=== PATIENT | female | born 1985 | race Caucasian/White ===

== ENCOUNTER 2021-01-10 17:06 | Emergency (ER) | payer BC, SELFPAY ==
[2021-01-10 17:11] VITALS: BP 144/109; PULSE 127; RESP 20; TEMP 36.9; O2SAT 100
[2021-01-10] MEDS: EPINEPHrine HCL INJ 1 MG/ML AMPUL 0.3 MG IM (17:17)
[2021-01-10] MEDS: methylPREDNISolone SOD SUCC 125 MG VIAL IV PUSH (17:19)
[2021-01-10] MEDS: FAMOTIDINE 20 MG/2 ML VIAL IV PUSH (17:20)
[2021-01-10 17:22] VITALS: BP 132/116; PULSE 108; RESP 14; O2SAT 100
--- NOTE | 2021-01-10 17:54 | ED.ALLEREA ---
HPI - Allergic Reaction General Chief complaint: Allergic Reaction <Erik León MD - Last Filed: 01/10/21 18:46> Stated complaint: allergic reaction <Erik León MD - Last Filed: 01/10/21 18:46> Time Seen by Provider: 01/10/21 17:11 <Erik León MD - Last Filed: 01/10/21 18:46> History of Present Illness HPI narrative: Patient is a 35-year-old female who presents ER with a food allergy. She reports she bit into a macaroni and immediately felt discomfort in swelling her throat. She has some minor difficulty swallowing but was able to take 50 mg of Benadryl. She does not have an EpiPen. She is tolerating her oral secretions. There is no stridor. She has no shortness of breath/nausea/vomiting. No skin rash. Has not had issues with eating macaroni and's before. 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 <Erik León MD - Last Filed: 01/10/21 18:46> Related Data Home medications: Home Medications Medication Instructions Recorded Confirmed albuterol sulfate INHALATION 01/10/21 bupropion HCl mg PO 01/10/21 <Erik León MD - Last Filed: 01/10/21 18:46> Allergies/adverse reactions: Allergies Allergy/AdvReac Type Severity Reaction Status Date / Time cashew nut Allergy Unknown Itching Verified 01/10/21 17:10 egg Allergy Unknown Itching Verified 01/10/21 17:10 Crab Allergy Unknown Itching Uncoded 01/10/21 17:10 [place] Allergy Unknown Itching Uncoded 01/10/21 17:10 Tuna Allergy Unknown Itching Uncoded 01/10/21 17:10 <Erik León MD - Last Filed: 01/10/21 18:46> Review of Systems Review of Systems: All systems reviewed & are unremarkable except as noted in HPI and below <Erik León MD - Last Filed: 01/10/21 18:46> Constitutional: Constitutional: Denies chills, Denies fever(s) and Denies weakness <Erik León MD - Last Filed: 01/10/21 18:46> ENT: Denies nasal congestion <Erik León MD - Last Filed: 01/10/21 18:46> Cardiovascular: Cardiovascular: Denies chest pain, Denies rapid heart rate and Denies radiating jaw, neck or arm pain <Erik León MD - Last Filed: 01/10/21 18:46> Respiratory: Respiratory: Denies cough, Denies dyspnea and Denies wheezing <Erik León MD - Last Filed: 01/10/21 18:46> Gastrointestinal: Gastrointestinal: Denies abdominal pain, Denies diarrhea, Denies nausea and Denies vomiting <Erik León MD - Last Filed: 01/10/21 18:46> PMFSH Past Medical History Medical History: Medical History (Updated 01/10/21 @ 18:45 by Erik León MD) Asthma <Erik León MD - Last Filed: 01/10/21 18:46> Surgical History Surgical History: Surgical History (Updated 01/10/21 @ 17:56 by Erik León MD) History of <Erik León MD - Last Filed: 01/10/21 18:46> Social History Social History: Social History Smoking status: Never smoker Alcohol intake: never Gender identity (if verbalized by the patient): Female <Erik León MD - Last Filed: 01/10/21 18:46> Exam Narrative: Exam Narrative: GENERAL: Well-appearing, well-nourished, and in no acute distress. HEAD: Normocephalic, atraumatic. ENT: Mucous membranes moist. Erythema to the back of the throat but uvula is midline, no angioedema of the uvula or tongue or lips. Tolerating oral secretions. NECK: Supple. CHEST: Clear to auscultation. No respiratory distress. HEART: Tachycardic and regular. Normal peripheral pulses. ABDOMEN: Soft, nontender, nondistended. EXTREMITIES: Normal range of motion. No edema. SKIN: Warm, dry, no rash. NEURO: Alert and oriented x3. <Erik León MD - Last Filed: 01/10/21 18:46> Course Course Emergency Course: Care turned over to myself at shift change seen by myself agrees initial H&P currently resting in bed no shortness of breath no rash no itching Patient re
[2021-01-10 20:06] VITALS: BP 131/85; PULSE 99; RESP 20; O2SAT 100
== END 2021-01-10 22:24 | disposition home or self-care (01) ==
PROVIDERS: Emergency Provider Emergency Medicine; PCP Internal Medicine
DX: T78.1XXA Other adverse food reactions, not elsewhere classified, initial encounter (principal); R09.89 Other specified symptoms and signs involving the circulatory and respiratory systems; R13.10 Dysphagia, unspecified; Z91.018 Allergy to other foods
CPT/HCPCS: 96372; 96374; 96375; 99284; J0171; J2930

== ENCOUNTER → 2021-05-20 08:28 | Outpatient (CLI) | payer BC, SELFPAY ==
--- NOTE | ~2021-05-20 | MMUS_ITS ---
EXAMINATION: [facility] BI w doug, US breast BI complete HISTORY: Left breast pain TECHNIQUE: ML, MLO and craniocaudal 3-D tomosynthesis images of both breasts were performed and synth [facility] 2-D images were generated. CAD analysis was submitted and interpreted. High resolution complete bilateral breast ultrasound was performed. COMPARISON: 07/07/2018 diagnostic left mammogram and limited left breast ultrasound 03/01/2017 bilateral diagnostic digital mammogram and bilateral complete breast ultrasound FINDINGS: MAMMOGRAPHIC FINDINGS: No suspicious mass or architectural distortion, malignant calcification, skin thickening or retractio n or significant new or developing density is detected. ULTRASOUND: There is a 3 mm cyst at the subareolar area of the right breast. No suspicious mass or shadowing of either breast is detected. IMPRESSION: 1. No mammographic evidence of malignancy 2. Routine mammographic screening is recommended BI-RADS Category 2: Benign finding(s). Reviewed, dictated and finalized at location A. IMPRESSION: 1. No mammographic evidence of malignancy 2. Routine mammographic screening is recommended BI-RADS Category 2: Benign finding(s).
== END ==
PROVIDERS: Visit Provider Student in an Organized Health Care Education/Training Program
DX: N64.4 Mastodynia (principal)
CPT/HCPCS: 76641; 77062; 77066; G0279

== ENCOUNTER 2022-02-18 07:51 | Emergency (ER) | payer BC, SELFPAY ==
--- NOTE | ~2022-02-18 | CT_ITS ---
EXAMINATION: CT abdomen pelvis w con DATE: 02/18/2022 08:58 INDICATION: Left lower quadrant abdominal pain. TECHNIQUE: Computed tomography (CT) of the abdomen and pelvis was performed with 100 mL Omnipaque 350 intravenous contrast. Automated exposure control and iterative reconstruction technique were employe d. The dose-length product was 805.91 mGy-cm. COMPARISON: None. FINDINGS: The visualized portions of the lung bases demonstrate minimal atelectasis on the right. No pleural effusion. The heart size is normal. No pericardial effusion. There is a small sliding hiatal hernia. The liver and spleen are normal. The gallbladder is distended, likely secondary to fasting. T he pancreas and adrenal glands are normal. There is a 3 mm cyst in right kidney. Left kidney is arcenio l. There is fat stranding around a sigmoid diverticulum with local bowel wall thickening, consistent with diverticulitis. There are no dilated loops of bowel. The appendix is normal. There is physiologi c fluid in the pelvis. There are no pathologically enlarged lymph nodes. The left ovarian vein is enl arged, consistent with pelvic venous insufficiency. There is mild lumbar spondylosis. IMPRESSION: 1. Acute sigmoid diverticulitis. No perforation or abscess. 2. Small sliding hiatal hernia. Reviewed, dictated and finalized at location A.
[2022-02-18 08:04] VITALS: BP 134/80; PULSE 92; RESP 16; TEMP 36.7; O2SAT 99
--- NOTE | 2022-02-18 08:16 | ED.ABDPAIN ---
HPI - Abdominal Pain General Chief Complaint: Abdominal Pain Stated Complaint: abd pain Time Seen by Provider: 02/18/22 07:55 Source: patient Mode of arrival: ambulatory Limitations: no limitations History of Present Illness HPI narrative: Patient is a 36-year-old female complaining of left lower quadrant pain, 9 out of 10, cramping, nonradiating started this morning. Patient states is currently on her menstrual cycle. Patient denies any chest pain, shortness of breath, nausea, vomiting, diarrhea, urinary symptoms, fever or chills. Related Data Home Medications Medication Instructions Recorded Confirmed albuterol sulfate INHALATION 01/10/21 bupropion HCl mg PO 01/10/21 Allergies Allergy/AdvReac Type Severity Reaction Status Date / Time cashew nut Allergy Unknown Itching Verified 01/10/21 17:10 egg Allergy Unknown Itching Verified 01/10/21 17:10 Crab Allergy Unknown Itching Uncoded 01/10/21 17:10 [place] Allergy Unknown Itching Uncoded 01/10/21 17:10 Tuna Allergy Unknown Itching Uncoded 01/10/21 17:10 Review of Systems Review of Systems: All systems reviewed & are unremarkable except as noted in HPI and below Constitutional: Constitutional: Denies body ache(s), Denies chills, Denies excessive sweating, Denies fatigue, Denies fever(s), Denies headache(s), Denies lethargy, Denies malaise, Denies weakness and Denies weight loss Eyes: Eyes: Denies blurry vision, Denies change in vision and Denies loss of vision ENT: Denies dizziness, Denies ear discharge, Denies headache(s), Denies lip swelling, Denies epistaxis, Denies nasal congestion, Denies neck pain, Denies throat swelling and Denies tongue swelling Cardiovascular: Cardiovascular: Denies chest pain, Denies chest pain at rest, Denies chest pain with activity, Denies diaphoresis, Denies rapid heart rate, Denies edema, Denies irregular heart rhythm, Denies lightheadedness, Denies palpitations, Denies dyspnea and Denies dyspnea on exertion Respiratory: Respiratory: Denies chest congestion, Denies cough, Denies hemoptysis, Denies dyspnea and Denies dyspnea on exertion Gastrointestinal: Gastrointestinal: Denies melena, Denies hematochezia, Denies diarrhea, Denies nausea, Denies vomiting and Denies hematemesis Musculoskeletal: Musculoskeletal: Denies abnormal gait, Denies deformity, Denies joint swelling, Denies limited range of motion, Denies neck pain and Denies numbness Neurologic: Denies Abnormal speech present, Denies abnormal gait, Denies confusion, Denies dizziness, Denies headache(s), Denies focal weakness, Denies loss of vision, Denies numbness, Denies Other visual disturbances, Denies Sensory deficit (Neuro) and Denies weakness Psychiatric: Psychiatric: Denies confusion, Denies depression, Denies auditory hallucinations, Denies homicidal ideation and Denies suicidal ideation Endocrine: Endocrine: Denies cold intolerance, Denies excessive sweating, Denies fatigue, Denies heat intolerance and Denies palpitations Hematologic/Lymphatic: Hematologic/Lymphatic: Denies easy bleeding and Denies easy bruising Allergic/Immunologic: Allergic/Immunologic: Denies lip swelling, Denies throat swelling and Denies tongue swelling PMFSH Past Medical History Medical History Asthma Surgical History Surgical History History of Social History Social History Smoking status: Never smoker Alcohol intake: never Gender identity (if verbalized by the patient): Female Exam Const: General: cooperative, healthy appearing, comfortable, no acute distress, well developed, alert and awake; No confusion Orientation/consciousness: oriented to person, oriented to place, oriented to time, patient oriented x3 and No confusion Limitations: no limitations HENMT: Head: normal to inspection, normocephalic and atrau
[2022-02-18 08:27] LABS: Basophils Absolute Auto 0.1 K/mm3 (0.0-0.1); Basophils Percent Auto 0.8 % (0.2-1.2); Eosinophils Absolute Auto 0.6 K/mm3 (0-0.3); Eosinophils Percent Auto 4.5 % (0-4.4); Hematocrit 41.9 % (37.0-47.0); Immature Granulocyte Absolute 0.05 K/mm3 (0.00-0.031); Immature Granulocyte Percent A 0.4 % (0-0.5); Lymphocytes Absolute Auto 2.46 K/mm3 (0.9-3.2); Lymphocytes Percent Auto 18.3 % (18.3-44.2); Mean Corpuscular HGB Conc 33.4 g/dl (32-36); Mean Corpuscular Volume 86.7 fl (80-100); Mean Platelet Volume 10.9 fl (7.4-10.4); Monocytes Absolute Auto 0.7 K/mm3 (0.1-0.6); Monocytes Percent Auto 5.4 % (2.6-8.5); Neutrophils Absolute Auto 9.5 K/mm3 (1.3-6.7); Neutrophils Percent Auto 70.6 % (45.5-73.1); Platelet Count Result 275 k/mm3 (150-375); Red Blood Count 4.83 M/mm3 (4.2-5.4); Red Cell Distribution Width 12.8 % (11.5-14.5); White Blood Count 13.4 K/mm3 (4.5-10.0)
[2022-02-18 08:28] LABS: Add Urine Microscopic? YES; Appearance Urine Clear (Clear); Bilirubin Urine Negative (Negative); Blood Urine 3+ (Negative); Color Urine Yellow (Yellow); Glucose Urine UA Negative (Negative); Ketones Urine Negative (Negative); Leukocyte Esterase Ur Negative LEU/UL (Negative); Mucus Urine Rare /lpf; Nitrate Urine Negative (Negative); Protein Urine Negative (Negative); RBC Urine >75 /hpf (0-2); Specific Grav Ur 1.005 (1.001-1.035); Squamous Epithelial Cell Urine Rare /hpf (Few); Urobilinogen Urine Negative mg/dL (<2.0)
[2022-02-18 08:35] LABS: Alanine Aminotransferase 21 U/L (4-35); Albumin Level 4.2 g/dL (3.5-5.1); Alkaline Phosphatase 89 U/L (38-126); Anion Gap 8 mmol/L (8-16); Aspartate Amino Transferase 21 U/L (14-36); Bilirubin,Total 0.3 mg/dL (0.2-1.3); Blood Urea Nitrogen 8 mg/dL (7-17); Calcium 9.1 mg/dL (8.4-10.2); Carbon Dioxide 27 mmol/L (22-30); Chloride 105 mmol/L (98-107); Estimated CRCL calculation 125 ml/min; Estimated Glomerular Filt Rate > 60; Glucose 116 mg/dL (65-110); Lipase 90 U/L (23-300); Potassium 3.9 mmol/L (3.4-5.0); Sodium 140 mmol/L (137-145)
[2022-02-18 09:08] VITALS: BP 127/76; PULSE 84; RESP 16; O2SAT 98
[2022-02-18] MEDS: metroNIDAZOLE 250 MG TABLET 500 MG PO (10:30)
[2022-02-18] MEDS: CIPROFLOXACIN 500 MG TAB PO (10:30)
[2022-02-18] MEDS: KETOROLAC 30 MG/ML VIAL (*BKC) IV PUSH (10:30)
[2022-02-18] MEDS: SODIUM CHLORIDE 0.9% IV 1,000 ML 999 ML IV CONT (10:30)
[2022-02-18 11:00] VITALS: TEMP 36.7
[2022-02-18 11:27] VITALS: BP 121/70; PULSE 74; RESP 16; O2SAT 98
== END 2022-02-18 11:46 | disposition home or self-care (01) ==
PROVIDERS: Emergency Provider Emergency Medicine; PCP Internal Medicine
DX: K57.32 Diverticulitis of large intestine without perforation or abscess without bleeding (principal); J45.909 Unspecified asthma, uncomplicated; K44.9 Diaphragmatic hernia without obstruction or gangrene
CPT/HCPCS: 36415; 74177; 80053; 81001; 81025; 83690; 85025; 87086; 96361; 96374; 99284; A9270; J1885; J7030; Q9967

== ENCOUNTER 2022-03-15 18:37 | Emergency (ER) | payer BC, SELFPAY ==
--- NOTE | ~2022-03-15 | CT_ITS ---
EXAMINATION: CT abdomen pelvis w con DATE: 03/15/2022 21:09 INDICATION: left lower quad pain TECHNIQUE: Computed tomography (CT) of the abdomen and pelvis was performed with 75 mL Omnipaque 300 intravenous contrast. Automated exposure control and iterative reconstruction technique were employed . The dose-length product was 552.36 mGy-cm. COMPARISON: 02/10/2022 FINDINGS: Lower thorax: Unremarkable Liver: Normal. Biliary/Gallbladder: Gallbladder is normal. No bile duct dilation. Pancreas: No mass or duct dilation. Spleen: Normal. Adrenals:No mass. Kidneys: No mass, stone, or hydronephrosis. GI tract: No small or large bowel dilation. Normal appendix. Mesentery/Peritoneum: No ascites, mass, or free air. Retroperitoneum: No mass. Pelvis: Pelvic organs are within normal limits. Soft Tissues: Soft tissues and body wall unremarkable. Bones: No acute osseous finding. IMPRESSION: No acute abdominopelvic process detected. Reviewed, dictated and finalized at location K.
[2022-03-15 18:40] VITALS: BP 125/80; PULSE 100; RESP 16; TEMP 36.2; O2SAT 100
[2022-03-15 19:11] VITALS: BP 124/91; PULSE 95; RESP 18; O2SAT 96
--- NOTE | 2022-03-15 19:13 | ED.GIBLEED ---
HPI - GI Bleed General Chief complaint: GI Bleed Stated complaint: Bloody stool Time Seen by Provider: 03/15/22 19:12 Source: patient Mode of arrival: ambulatory Limitations: no limitations History of Present Illness HPI Narrative: Patient is a 36-year-old female with a history of diverticulitis and hemorrhoids, complaining of rectal bleeding accompanied by left lower quadrant pain, mild, sharp, nonradiating started today. Patient describes her rectal bleed as blood in her stool, only when she strains. Patient was seen here last month for similar complaints was diagnosed with acute diverticulitis. Patient states that she has an appointment to see a creative lead in 2 weeks. Patient denies any hemoptysis, hematemesis, hematuria, fever or chills. Patient denies being on any oral anticoagulants or antiplatelet medication. Related Data Home Medications Medication Instructions Recorded Confirmed albuterol sulfate INHALATION 01/10/21 bupropion HCl mg PO 01/10/21 Allergies Allergy/AdvReac Type Severity Reaction Status Date / Time cashew nut Allergy Unknown Itching Verified 03/15/22 18:43 egg Allergy Unknown Itching Verified 03/15/22 18:43 Crab Allergy Unknown Itching Uncoded 03/15/22 18:43 [place] Allergy Unknown Itching Uncoded 03/15/22 18:43 Tuna Allergy Unknown Itching Uncoded 03/15/22 18:43 Review of Systems Review of Systems: All systems reviewed & are unremarkable except as noted in HPI and below Constitutional: Constitutional: Denies body ache(s), Denies chills, Denies excessive sweating, Denies fatigue, Denies fever(s), Denies headache(s), Denies lethargy, Denies malaise, Denies weakness and Denies weight loss Eyes: Eyes: Denies blurry vision, Denies change in vision and Denies loss of vision ENT: Denies dizziness, Denies ear discharge, Denies headache(s), Denies lip swelling, Denies epistaxis, Denies nasal congestion, Denies neck pain, Denies throat swelling and Denies tongue swelling Cardiovascular: Cardiovascular: Denies chest pain, Denies chest pain at rest, Denies chest pain with activity, Denies diaphoresis, Denies rapid heart rate, Denies edema, Denies irregular heart rhythm, Denies lightheadedness, Denies palpitations, Denies dyspnea and Denies dyspnea on exertion Respiratory: Respiratory: Denies chest congestion, Denies cough, Denies hemoptysis, Denies dyspnea and Denies dyspnea on exertion Gastrointestinal: Gastrointestinal: Denies abdominal pain, Denies melena, Denies diarrhea, Denies nausea, Denies vomiting and Denies hematemesis Musculoskeletal: Musculoskeletal: Denies abnormal gait, Denies deformity, Denies joint swelling, Denies limited range of motion, Denies neck pain and Denies numbness Neurologic: Denies Abnormal speech present, Denies abnormal gait, Denies confusion, Denies dizziness, Denies headache(s), Denies focal weakness, Denies loss of vision, Denies numbness, Denies Other visual disturbances, Denies Sensory deficit (Neuro) and Denies weakness Psychiatric: Psychiatric: Denies confusion, Denies depression, Denies auditory hallucinations, Denies homicidal ideation and Denies suicidal ideation Endocrine: Endocrine: Denies cold intolerance, Denies excessive sweating, Denies fatigue, Denies heat intolerance and Denies palpitations Hematologic/Lymphatic: Hematologic/Lymphatic: Denies easy bleeding and Denies easy bruising Allergic/Immunologic: Allergic/Immunologic: Denies lip swelling, Denies throat swelling and Denies tongue swelling PMFSH Past Medical History Medical History Asthma Surgical History Surgical History History of Social History Social History Smoking status: Never smoker Alcohol intake: never Gender identity (if verbalized by the patient): Female Exam Const: General: cooperative, healthy
--- NOTE | 2022-03-15 19:20 | PC.NURSE ---
Assumed care of pt at this time. Pt alert and upright on stretcher, no request at this time.
[2022-03-15 19:21] LABS: Basophils Absolute Auto 0.1 K/mm3 (0.0-0.1); Basophils Percent Auto 0.7 % (0.2-1.2); Eosinophils Absolute Auto 0.6 K/mm3 (0-0.3); Eosinophils Percent Auto 5.6 % (0-4.4); Hematocrit 40.6 % (37.0-47.0); Hemoglobin 13.2 g/dL (12.0-15.0); Immature Granulocyte Absolute 0.05 K/mm3 (0.00-0.031); Immature Granulocyte Percent A 0.4 % (0-0.5); Lymphocytes Absolute Auto 3.52 K/mm3 (0.9-3.2); Lymphocytes Percent Auto 31.5 % (18.3-44.2); Mean Corpuscular HGB Conc 32.5 g/dl (32-36); Mean Corpuscular Hemoglobin 28.4 pg (26-34); Mean Corpuscular Volume 87.3 fl (80-100); Mean Platelet Volume 10.5 fl (7.4-10.4); Monocytes Absolute Auto 0.7 K/mm3 (0.1-0.6); Monocytes Percent Auto 6.4 % (2.6-8.5); Neutrophils Absolute Auto 6.2 K/mm3 (1.3-6.7); Neutrophils Percent Auto 55.4 % (45.5-73.1); Platelet Count Result 282 k/mm3 (150-375); Red Blood Count 4.65 M/mm3 (4.2-5.4); White Blood Count 11.2 K/mm3 (4.5-10.0)
[2022-03-15 19:24] LABS: Appearance Urine Clear (Clear); Bilirubin Urine Negative (Negative); Blood Urine Negative (Negative); Color Urine Yellow (Yellow); Glucose Urine UA Negative (Negative); Ketones Urine Negative (Negative); Leukocyte Esterase Ur 1+ LEU/UL (Negative); Nitrate Urine Negative (Negative); Protein Urine Negative (Negative); Specific Grav Ur 1.015 (1.001-1.035); Urobilinogen Urine 0.2 mg/dL (<2.0); pH Urine 6.5 (5.0-9.0)
[2022-03-15 19:31] LABS: Alanine Aminotransferase 36 U/L (6-35); Albumin Level 4.2 g/dL (3.5-5.1); Alkaline Phosphatase 55 U/L (38-126); Anion Gap 7 mmol/L (8-16); Aspartate Amino Transferase 32 U/L (14-36); Bilirubin,Total 0.1 mg/dL (0.2-1.3); Blood Urea Nitrogen 10 mg/dL (7-17); Carbon Dioxide 28 mmol/L (22-30); Chloride 106 mmol/L (98-107); Estimated CRCL calculation 148 ml/min; Estimated Glomerular Filt Rate > 60; Glucose 102 mg/dL (65-110); Lipase 132 U/L (23-300); Potassium 3.7 mmol/L (3.4-5.0); Sodium 141 mmol/L (137-145)
[2022-03-15 19:39] LABS: Bacteria Urine Trace /hpf; Mucus Urine Rare /lpf; RBC Urine 0-2 /hpf (0-2); Squamous Epithelial Cell Urine Rare /hpf (Few); WBC Urine 0-3 /hpf
[2022-03-15 19:40] LABS: Add Urine Microscopic? YES
[2022-03-15 20:36] VITALS: BP 114/76; PULSE 86; RESP 16; O2SAT 97
--- NOTE | 2022-03-15 21:03 | PC.NURSE ---
Pt in imaging at this time.
[2022-03-15] MEDS: SODIUM CHLORIDE 0.9% IV 1,000 ML 999 ML IV CONT (21:15)
[2022-03-15 22:33] VITALS: BP 127/87; PULSE 82; RESP 16; O2SAT 100
== END 2022-03-15 22:34 | disposition home or self-care (01) ==
PROVIDERS: Emergency Medicine; Emergency Provider Emergency Medicine; PCP Internal Medicine
DX: K64.9 Unspecified hemorrhoids (principal); K92.1 Melena; J45.909 Unspecified asthma, uncomplicated
CPT/HCPCS: 36415; 74177; 80053; 81001; 81025; 83690; 85025; 86850; 86900; 86901; 96360; 99284; J7030; Q9967

== ENCOUNTER 2022-05-03 02:40 | Day surgery (SDC) | payer BC, SELFPAY ==
[2022-04-14 09:45] VITALS: BMI 29.8
[2022-05-03 06:53] VITALS: BP 119/81; PULSE 96; RESP 18; TEMP 36.4; O2SAT 100
--- NOTE | 2022-05-03 06:59 | P.PNAN_ITS ---
Anes - Initial Pre Proc Eval Procedure: Operation Date: 05/03/22 08:00 Proposed Procedures p Esophagogastroduodenoscopy & Colonoscopy - Fabrice Irwin MD Date/Time: 05/03/22 06:59 Surgeon: Fabrice Irwin MD Pre Op Diagnosis: GERD, dysphagia, rectal bleed, diverticulitis Patient Data Age: 36 Gender: F Height: 1.7 m Weight: 88.4 kg Last Vital Signs Temp 36.4 C L 05/03/22 06:53 Pulse 96 05/03/22 06:53 Resp 18 05/03/22 06:53 BP 119/81 05/03/22 06:53 Pulse Ox 100 05/03/22 06:53 O2 Del Method Room Air 05/03/22 06:53 Allergies Allergy/AdvReac Type Severity Reaction Status Date / Time cashew nut Allergy Unknown Itching Verified 05/03/22 06:51 egg Allergy Unknown Itching Verified 05/03/22 06:51 Crab Allergy Unknown Itching Uncoded 05/03/22 06:51 [place] Allergy Unknown Itching Uncoded 05/03/22 06:51 Tuna Allergy Unknown Itching Uncoded 05/03/22 06:51 Home Medications Medication Instructions Recorded Confirmed Type albuterol sulfate 90 mcg/actuation 90 mcg inhalation PRN 01/10/21 04/14/22 History aerosol inhaler epinephrine 0.3 mg/0.3 mL 0.3 mg (0.3 mL) IM ONCE #1 ea 01/10/21 04/14/22 Rx injection, auto-injector (EpiPen 2-Vitaliy) wheat dextrin 3 gram/3.5 gram oral 1 packet PO DAILY 03/30/22 04/14/22 History powder packet (Benefiber Clear Sugar Free(dextrin)) Patient hx anesthesia problems: none Family hx anesthesia problems: none Results Review: All pre-operative results and documents have been reviewed as part of the pre- operative evaluation. [facility] Past Medical History Medical History (Updated 03/30/22 @ 09:30 by Thalia Nina APRN) Asthma GERD (gastroesophageal reflux disease) Obesity Surgical History Surgical History History of Social History Social History Smoking status: Never smoker Alcohol intake: never Substance use: never Substance use type: does not use Living arrangements: with family Gender identity (if verbalized by the patient): Female Spiritual care concerns: No Anes - Eval Final PreProcedure Day of Procedure 05/03/22 06:59 Patient weight: overweight Heart: regular rate and rhythm Lungs: clear to auscultation Airway: Mallampati scale class II Neurological: alert and oriented Last oral intake: >/= 8 hours ASA classification: II Emergent: no Anesthetic plan: proceed Anesthesia type and monitoring: general GIVS and standard monitoring Results Review: All pre-operative results and documents have been reviewed as part of the pre- operative evaluation. Informed Consent: The patient's anesthetic plan and its attendant risks and benefits were discussed with the patient/family/POA. Questions were solicited and answers provided to the satisfaction of the patient/family/POA.
[2022-05-03] MEDS: LACTATED RINGERS 1,000 ML 150 ML IV CONT (07:05)
--- NOTE | 2022-05-03 07:17 | PM.HPGS ---
History of Present Illness History of Present Illness Consent: Risks, benefits, and alternatives have been discussed and questions answered. Patient agrees to proceed with procedure. Chief complaint: GERD, dysphagia, rectal bleed, diverticulitis Narrative: Shanti Padilla is a 36 year old female with a history of acute diverticulitis.? She was seen in the ER for 02/18/2022 for complaints of left lower quadrant abdominal pain.? She had a mildly elevated WBC of 13.[address] scan showing acute sigmoid diverticulitis with no perforation or abscess, and a small hiatal hernia and she was discharged on Cipro and Flagyl x7 days.? She reports that she has been having intermittent left lower quadrant abdominal discomfort for several months leading up to that ER visit.? She initially saw her gynecological assistant as she thought she had an ovarian cyst which she did not.? She does state off and on for the last couple of years she has a bowel movement every 2-3 days and they are small and hard that she describes as constipation.? She presented to the ER again 03/15/2022 complaining of bright red blood per rectum along with intermittent left lower quadrant abdominal pain.? She denied any rectal pain and states that the bright red blood was even dripping out of her rectum even without having a bowel movement.? Had a repeat CT of abdomen pelvis with contrast that showed no acute abdominal pelvic process detected.? She was diagnosed with hemorrhoids and told to follow-up in our office.? At this time she still has a bowel movement every 2-3 days and she has added Benefiber twice per day but she feels like her stools bowels are more soft.? She has had 1 episode of bright red blood per rectum since February and was in a very small amount.? She does have ?gas pains? but denies left lower quadrant pain.? She does report intermittent dysphagia to solids in the middle of her chest along with acid reflux mainly occurring at night with lying down.? Review of Systems Review of Systems: All systems reviewed & are unremarkable except as noted in HPI and below PMFSH Past Medical History Medical History (Updated 05/03/22 @ 07:29 by Fabrice Irwin MD) Asthma GERD (gastroesophageal reflux disease) Obesity Surgical History Surgical History History of Social History Social History Smoking status: Never smoker Alcohol intake: never Substance use: never Substance use type: does not use Living arrangements: with family Gender identity (if verbalized by the patient): Female Spiritual care concerns: No Meds Home Medications and Allergies Home Medications Medication Instructions Recorded Confirmed Type albuterol sulfate 90 mcg/actuation 90 mcg inhalation PRN 01/10/21 04/14/22 History aerosol inhaler epinephrine 0.3 mg/0.3 mL 0.3 mg (0.3 mL) IM ONCE #1 ea 01/10/21 04/14/22 Rx injection, auto-injector (EpiPen 2-Vitaliy) wheat dextrin 3 gram/3.5 gram oral 1 packet PO DAILY 03/30/22 04/14/22 History powder packet (Benefiber Clear Sugar Free(dextrin)) Allergies Allergy/AdvReac Type Severity Reaction Status Date / Time cashew nut Allergy Unknown Itching Verified 05/03/22 06:51 egg Allergy Unknown Itching Verified 05/03/22 06:51 [place] Allergy Unknown Itching Uncoded 05/03/22 06:51 [place] Allergy Unknown Itching Uncoded 05/03/22 06:51 Tuna Allergy Unknown Itching Uncoded 05/03/22 06:51 Vital Signs Vital Signs - 24 hr 05/03/22 06:53 Temperature 36.4 C L Pulse Rate 96 Respiratory Rate 18 Blood Pressure 119/81 Pulse Oximetry 100 Oxygen Delivery Room Air Exam Const: General: alert Orientation/consciousness: patient oriented x3 Resp: Auscultation: clear to auscultation bilaterally Cardio: Rhythm: regular rhythm GI: GI Palp: Yes Soft to palpation and No Tenderness to palpation present (GI) Neuro: General: patient orie
--- NOTE | 2022-05-03 08:28 | SUR.OPER ---
EGD: [id number] Colonoscopy began at 825
[2022-05-03 08:37] VITALS: BP 100/64; PULSE 88; RESP 20; O2SAT 100
[2022-05-03 08:47] VITALS: BP 103/59; PULSE 77; RESP 15; O2SAT 100
[2022-05-03 08:57] VITALS: BP 105/55; PULSE 75; RESP 17; O2SAT 100
== END 2022-05-03 09:00 | disposition home or self-care (01) ==
PROVIDERS: PCP Internal Medicine; Visit Provider Internal Medicine Gastroenterology
PROC: 0DJ08ZZ Inspection of Upper Intestinal Tract, Via Natural or Artificial Opening Endoscopic (ICD-10-PCS; CPT 43235; principal; 2022-05-03 08:00)
DX: K92.1 Melena (principal); K64.8 Other hemorrhoids; K57.30 Diverticulosis of large intestine without perforation or abscess without bleeding; K22.2 Esophageal obstruction; K29.70 Gastritis, unspecified, without bleeding; K21.9 Gastro-esophageal reflux disease without esophagitis; Z87.19 Personal history of other diseases of the digestive system; Z79.51 Long term (current) use of inhaled steroids; J45.909 Unspecified asthma, uncomplicated; E66.9 Obesity, unspecified
CPT/HCPCS: 45378; 43239; 43249; 87081; 88305; C1726; J2704; J7120

== ENCOUNTER 2022-08-05 03:33 | Day surgery (SDC) | payer BC, SELFPAY ==
[2022-06-25 13:40] VITALS: BMI 29.7
--- NOTE | 2022-07-16 15:03 | PC.NURSE ---
Patient denies any changes to health history since previous interview. Updated on date and time and instructions.
--- NOTE | 2022-08-04 16:22 | P.HP_ITS ---
History of Present Illness History of Present Illness Consent: Risks, benefits, and alternatives have been discussed and questions answered. Patient agrees to proceed with procedure. 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 The stricture could be dilated only up to 13.5 mm. She also was found have eosinophilic esophagitis with over 40 eosinophils per HPF. She has been taking omeprazole 40 mg daily. Review of Systems Review of Systems: All systems reviewed & are unremarkable except as noted in HPI and below PMFSH Past Medical History Medical History Asthma GERD (gastroesophageal reflux disease) Obesity Surgical History Surgical History History of Social History Social History Smoking status: Never smoker Alcohol intake: never Substance use: never Substance use type: does not use Living arrangements: with family Gender identity (if verbalized by the patient): Female Spiritual care concerns: No Meds Home Medications and Allergies Home Medications Medication Instructions Recorded Confirmed Type albuterol sulfate 90 mcg/actuation 90 mcg inhalation PRN 01/10/21 06/25/22 History aerosol inhaler epinephrine 0.3 mg/0.3 mL 0.3 mg (0.3 mL) IM ONCE #1 ea 01/10/21 06/25/22 Rx injection, auto-injector (EpiPen 2-Vitaliy) wheat dextrin 3 gram/3.5 gram oral 1 packet PO DAILY 03/30/22 06/25/22 History powder packet (Benefiber Clear Sugar Free(dextrin)) omeprazole 40 mg capsule,delayed 40 mg PO DAILY #30 caps 06/07/22 06/25/22 Rx release Allergies Allergy/AdvReac Type Severity Reaction Status Date / Time cashew nut Allergy Unknown Itching Verified 05/03/22 06:51 egg Allergy Unknown Itching Verified 05/03/22 06:51 pistachio nut Allergy Unknown Itching Verified 06/25/22 13:38 Crab Allergy Unknown Itching Uncoded 05/03/22 06:51 [place] Allergy Unknown Itching Uncoded 05/03/22 06:51 Tuna Allergy Unknown Itching Uncoded 05/03/22 06:51 Exam Const: General: alert Orientation/consciousness: patient oriented x3 Resp: Auscultation: clear to auscultation bilaterally Cardio: Rhythm: regular rhythm GI: GI Palp: Yes Soft to palpation and No Tenderness to palpation present (GI) Neuro: General: patient oriented x3 Assessment and Plan Assessment and plan (1) Dysphagia: Code(s): R13.10 - Dysphagia, unspecified Status: Acute Assessment and Plan: EGD with possible biopsy or dilatation or cautery.
[2022-08-05 09:25] VITALS: BP 128/84; PULSE 96; RESP 18; TEMP 36.7; O2SAT 100
[2022-08-05] MEDS: LACTATED RINGERS 1,000 ML 150 ML IV CONT (09:33)
--- NOTE | 2022-08-05 09:52 | P.PNAN_ITS ---
Anes - Initial Pre Proc Eval Procedure: Operation Date: 08/05/22 10:45 Proposed Procedures p Esophagogastroduodenoscopy - Fabrice Irwin MD Date/Time: 08/05/22 09:52 Surgeon: Fabrice Irwin MD Pre Op Diagnosis: esophageal stricture Patient Data Age: 37 Gender: F Height: 1.7 m Weight: 89.4 kg Last Vital Signs Temp 98.1 F 08/05/22 09:25 Pulse 96 08/05/22 09:25 Resp 18 08/05/22 09:25 BP 128/84 08/05/22 09:25 Pulse Ox 100 08/05/22 09:25 O2 Del Method Room Air 08/05/22 09:25 Allergies Allergy/AdvReac Type Severity Reaction Status Date / Time cashew nut Allergy Unknown Itching Verified 05/03/22 06:51 egg Allergy Unknown Itching Verified 05/03/22 06:51 pistachio nut Allergy Unknown Itching Verified 06/25/22 13:38 Crab Allergy Unknown Itching Uncoded 05/03/22 06:51 [place] Allergy Unknown Itching Uncoded 05/03/22 06:51 Tuna Allergy Unknown Itching Uncoded 05/03/22 06:51 Home Medications Medication Instructions Recorded Confirmed Type albuterol sulfate 90 mcg/actuation 90 mcg inhalation PRN 01/10/21 06/25/22 History aerosol inhaler epinephrine 0.3 mg/0.3 mL 0.3 mg (0.3 mL) IM ONCE #1 ea 01/10/21 06/25/22 Rx injection, auto-injector (EpiPen 2-Vitaliy) wheat dextrin 3 gram/3.5 gram oral 1 packet PO DAILY 03/30/22 06/25/22 History powder packet (Benefiber Clear Sugar Free(dextrin)) omeprazole 40 mg capsule,delayed 40 mg PO DAILY #30 caps 06/07/22 06/25/22 Rx release Patient hx anesthesia problems: none Family hx anesthesia problems: none Results Review: All pre-operative results and documents have been reviewed as part of the pre- operative evaluation. [facility] Past Medical History Medical History (Updated 05/03/22 @ 07:29 by Fabrice Irwin MD) Asthma GERD (gastroesophageal reflux disease) Obesity Surgical History Surgical History History of Social History Social History Smoking status: Never smoker Alcohol intake: never Substance use: never Substance use type: does not use Living arrangements: with family Gender identity (if verbalized by the patient): Female Spiritual care concerns: No Anes - Eval Final PreProcedure Day of Procedure 08/05/22 09:52 Patient weight: overweight Heart: regular rate and rhythm Lungs: clear to auscultation Airway: Mallampati scale class II Neurological: alert and oriented Last oral intake: >/= 8 hours ASA classification: II Emergent: no Anesthetic plan: proceed Anesthesia type and monitoring: general GIVS and standard monitoring Results Review: All pre-operative results and documents have been reviewed as part of the pre- operative evaluation. Informed Consent: The patient's anesthetic plan and its attendant risks and benefits were discussed with the patient/family/POA. Questions were solicited and answers provided to the satisfaction of the patient/family/POA.
[2022-08-05 10:52] VITALS: BP 111/76; PULSE 75; RESP 14; O2SAT 100
[2022-08-05 11:02] VITALS: BP 114/85; PULSE 68; RESP 14; O2SAT 100
[2022-08-05 11:12] VITALS: BP 112/86; PULSE 71; RESP 15; O2SAT 100
== END 2022-08-05 11:29 | disposition home or self-care (01) ==
PROVIDERS: PCP Internal Medicine; Visit Provider Internal Medicine Gastroenterology
PROC: 0DJ08ZZ Inspection of Upper Intestinal Tract, Via Natural or Artificial Opening Endoscopic (ICD-10-PCS; CPT 43235; principal; 2022-08-05 10:45)
DX: K22.2 Esophageal obstruction (principal); K20.0 Eosinophilic esophagitis; J45.909 Unspecified asthma, uncomplicated; K21.9 Gastro-esophageal reflux disease without esophagitis; E66.9 Obesity, unspecified; Z68.30 Body mass index [BMI] 30.0-30.9, adult; Z79.51 Long term (current) use of inhaled steroids
CPT/HCPCS: 43249; 88305; C1726; J2704; J7120

== ENCOUNTER 2022-12-10 21:32 | Emergency (ER) | payer BC, SELFPAY ==
--- NOTE | ~2022-12-10 | XR_ITS ---
XR foot LT 2V 12/10/2022 22:07 INDICATION: Left foot pain after injury PROCEDURE: 2 views left foot COMPARISON: No prior studies for comparison. FINDINGS: Fracture, dislocation or subluxation is not identified. The soft tissues appear within norm al limits. No foreign bodies are identified. IMPRESSION: 1: NO ACUTE BONE OR JOINT ABNORMALITY IDENTIFIED. Reviewed, dictated and finalized at location A. NDER WORKER
--- NOTE | ~2022-12-10 | XR_ITS ---
XR hip RT 2V w AP pelvis 12/10/2022 22:08 INDICATION: Right hip pain after fall PROCEDURE: AP pelvis and 2 views right hip COMPARISON: No prior studies for comparison. FINDINGS: Fracture, dislocation or subluxation is not identified. The soft tissues appear within norm al limits. No foreign bodies are identified. IMPRESSION: 1: NO ACUTE BONE OR JOINT ABNORMALITY IDENTIFIED. Reviewed, dictated and finalized at location A. AND BEVERAGE MANAGER
[2022-12-10 21:42] VITALS: BP 130/68; PULSE 127; RESP 18; TEMP 36.6; O2SAT 99
[2022-12-10] MEDS: HYDROcodone/acetaminophen (*CRX) 10-325 MG TABLET 1 TAB PO (23:48)
--- NOTE | 2022-12-10 23:52 | ED.FALL ---
HPI - Fall General Chief Complaint: Fall <Mat Barney PA-C - Last Filed: 12/11/22 01:37> Stated Complaint: fell down 7-8 steps, left foot/right hip <ISIAH Henley Last Filed: 12/11/22 01:37> Time Seen by Provider: 12/10/22 23:23 <Mat Barney PA-C - Last Filed: 12/11/22 01:37> Source: patient <ISIAH Henley Last Filed: 12/11/22 01:37> Mode of arrival: ambulatory <ISIAH Henley Last Filed: 12/11/22 01:37> Limitations: no limitations <ISIAH Henley Last Filed: 12/11/22 01:37> History of Present Illness HPI Narrative: This is a 37-year-old female with chief complaint of fall that occurred just prior to arrival in the ED. States she slipped at the top of a flight of stairs and fell down 7 stairs in total. Had left foot and right hip pain following the fall. She has been able to bear weight. Denies head trauma. Denies any LOC. Denies numbness, weakness. Denies any further site of pain. <Mat Barney PA-C - Last Filed: 12/11/22 01:37> Related Data Home Medications: Home Medications Medication Instructions Recorded Confirmed albuterol sulfate 90 mcg/actuation 90 mcg inhalation PRN 01/10/21 06/25/22 aerosol inhaler wheat dextrin 3 gram/3.5 gram oral 1 packet PO DAILY 03/30/22 06/25/22 powder packet (Benefiber Clear Sugar Free(dextrin)) <Mat Barney PA-C - Last Filed: 12/11/22 01:37> Allergies/Adverse Reactions: Allergies Allergy/AdvReac Type Severity Reaction Status Date / Time cashew nut Allergy Unknown Itching Verified 12/10/22 23:09 egg Allergy Unknown Itching Verified 12/10/22 23:09 pistachio nut Allergy Unknown Itching Verified 12/10/22 23:09 Crab Allergy Unknown Itching Uncoded 05/03/22 06:51 [place] Allergy Unknown Itching Uncoded 05/03/22 06:51 Tuna Allergy Unknown Itching Uncoded 05/03/22 06:51 <Mat Barney PA-C - Last Filed: 12/11/22 01:37> Review of Systems Review of Systems: CONSTITUTIONAL: Denies fever, chills, or sweats. SKIN: Denies rash or itching. MUSCULOSKELETAL: Endorses left foot pain and right hip pain. Denies back pain, other joint pain, or myalgia. NEUROLOGIC: Denies headache, numbness, dizziness, or weakness. <Mat Barney PA-C - Last Filed: 12/11/22 01:37> PMFSH Past Medical History Medical History: Medical History Asthma GERD (gastroesophageal reflux disease) Obesity <ISIAH Henley Last Filed: 12/11/22 01:37> Surgical History Surgical History: Surgical History History of <ISIAH Henley Last Filed: 12/11/22 01:37> Social History Social History: Social History Smoking status: Never smoker Alcohol intake: never Substance use: never Substance use type: does not use Living arrangements: with family Gender identity (if verbalized by the patient): Female Spiritual care concerns: No <ISIAH Henley Last Filed: 12/11/22 01:37> Exam Narrative: GENERAL: Well-appearing, well-nourished, and in no acute distress. HEAD: Normocephalic, atraumatic. EYES: PERRLA and EOMI. ENT: Nares clear, no rhinorrhea or epistaxis. Mucous membranes moist. Oropharynx without tonsillar hypertrophy exudate or other lesions. NECK: Supple. No adenopathy or masses. CHEST: No respiratory distress. Clear to auscultation. No wheezes rales or rhonchi HEART: Regular rate and rhythm. No murmur heard. Normal peripheral pulses. ABDOMEN: Soft, nontender, nondistended, normal active bowel sounds. EXTREMITIES: Left foot: Moderate swelling to the left forefoot. Moderate tenderness to the left forefoot in the area of swelling. No tenderness to the base of the fifth MCP or anywhere in the ankle. Normal range of motion. Right hip: Bruising present. Leg lengths are equal. Tenderness t
[2022-12-11 00:13] VITALS: BP 135/73; PULSE 79; RESP 17; O2SAT 99
[2022-12-11 01:36] VITALS: BP 118/73; O2SAT 100
== END 2022-12-11 01:38 | disposition home or self-care (01) ==
PROVIDERS: Emergency Provider Physician Assistant; PCP Internal Medicine
DX: S70.01XA Contusion of right hip, initial encounter (principal); S70.11XA Contusion of right thigh, initial encounter; S99.922A Unspecified injury of left foot, initial encounter; J45.909 Unspecified asthma, uncomplicated; K21.9 Gastro-esophageal reflux disease without esophagitis; E66.9 Obesity, unspecified; Z68.29 Body mass index [BMI] 29.0-29.9, adult; W10.9XXA Fall (on) (from) unspecified stairs and steps, initial encounter
CPT/HCPCS: 73502; 73620; 99284; A9270

== ENCOUNTER 2023-03-11 11:46 | Outpatient (CLI) | payer BC, SELFPAY ==
--- NOTE | ~2023-03-11 | CT_ITS ---
EXAMINATION: CT BRAIN W/O DATE: 03/11/2023 12:02 INDICATION: Dizziness and right-sided headaches TECHNIQUE: Computed tomography (CT) of the head was performed without intravenous contrast. The dose- length product was 599.57 mGy-cm. Automated exposure control and iterative reconstruction technique w ere employed. COMPARISON: No prior studies for comparison. FINDINGS: Normal brain parenchymal volume for age. Normal grace-white differentiation. No acute intrac ranial hemorrhage, infarction, mass or mass effect. No ventriculomegaly or midline shift. Midline sagittal images demonstrate a normal corpus callosum, c raniovertebral junction and sella turcica. Basilar cisterns are patent. Paranasal sinuses and mastoids are pneumatized. No depressed skull fractures. IMPRESSION: 1. No acute intracranial abnormality. Reviewed, dictated and finalized at location B.
== END 2023-03-11 11:47 ==
LOC: MICIMG 11:47
PROVIDERS: PCP Nurse Practitioner; Visit Provider Nurse Practitioner
DX: R42 Dizziness and giddiness (principal); R51.9 Headache, unspecified
CPT/HCPCS: 70450

== ENCOUNTER 2023-07-16 02:06 | Emergency (ER) | payer BC, SELFPAY ==
--- NOTE | 2023-07-16 02:09 | ECG_ITS ---
Measurements Intervals Reading Rate: 100 P: 4 [place]: 175 QRS: 76 QRSD: 94 T: 13 QT: 356 QTc: 459 Interpretive Statements SINUS TACHYCARDIA INCOMPLETE RIGHT BUNDLE BRANCH BLOCK BASELINE ARTIFACT- II, III, AVR, AVF BORDERLINE ECG NO PREVIOUS ECG AVAILABLE FOR COMPARISON Electronically Signed On 07-16-2023 7:30:15 CDT by José Antonio Aquino D.O.
[2023-07-16 02:10] VITALS: BP 140/97; PULSE 94; RESP 20; TEMP 37.2; O2SAT 100
--- NOTE | 2023-07-16 04:39 | PC.NURSE ---
patient states the wait is too long and left from triage area
== END 2023-07-16 05:45 | disposition left against medical advice (07) ==
LOC: ANHED 04:48
PROVIDERS: Emergency Provider Student in an Organized Health Care Education/Training Program; PCP Nurse Practitioner
DX: R00.0 Tachycardia, unspecified (principal)
CPT/HCPCS: 93005; 99199

== ENCOUNTER 2023-10-14 08:15 | Emergency (ER) | payer BC, SELFPAY ==
[2023-10-14 08:27] VITALS: BP 129/76; PULSE 103; RESP 18; TEMP 37.1; O2SAT 100
--- NOTE | 2023-10-14 08:47 | ED.URI ---
HPI - URI/Sore Throat General Chief Complaint: Upper Respiratory Infection Stated Complaint: Cough Time Seen by Provider: 10/14/23 08:39 Source: patient and RN notes reviewed Mode of arrival: ambulatory Limitations: no limitations History of Present Illness HPI Narrative: Patient presents today complaining of productive cough and chest tightness since yesterday. Denies any additional symptoms to include congestion, rhinorrhea, sore throat, fever. Her children were sick last week with similar symptoms and were tested for COVID and influenza and were negative. She does have history of asthma for which she uses a rescue albuterol inhaler. States when she uses it it is helpful. She has also been using Mucinex without much relief. Related Data Home Medications Medication Instructions Recorded Confirmed albuterol sulfate 90 mcg/actuation 90 mcg inhalation PRN 01/10/21 10/14/23 aerosol inhaler wheat dextrin 3 gram/3.5 gram oral 1 packet PO DAILY 03/30/22 10/14/23 powder packet (Benefiber Clear Sugar Free(dextrin)) Allergies Allergy/AdvReac Type Severity Reaction Status Date / Time cashew nut Allergy Unknown Itching Verified 12/10/22 23:09 egg Allergy Unknown Itching Verified 12/10/22 23:09 pistachio nut Allergy Unknown Itching Verified 12/10/22 23:09 Crab Allergy Unknown Itching Uncoded 05/03/22 06:51 [place] Allergy Unknown Itching Uncoded 05/03/22 06:51 Tuna Allergy Unknown Itching Uncoded 05/03/22 06:51 Review of Systems Review of Systems: CONSTITUTIONAL: Denies body aches, fever, chills, or sweats. EYES: Denies visual changes, redness, or discharge. ENT: Denies rhinorrhea, congestion, sore throat, or otalgia. CARDIOVASCULAR: Denies chest pain, palpitations, or edema. RESPIRATORY: + cough, chest tightness. GASTROINTESTINAL: Denies abdominal pain, nausea, vomiting, or diarrhea. GENITOURINARY: Denies dysuria or hematuria. SKIN: Denies rash, itching, or wounds. MUSCULOSKELETAL: Denies back pain, joint pain, or myalgia. NEUROLOGIC: Denies headache, numbness, tingling, or weakness. PSYCH: Denies depression or anxiety. REPLACED BY [facility] Past Medical History Medical History Asthma GERD (gastroesophageal reflux disease) Obesity Surgical History Surgical History History of Social History Social History Smoking status: Never smoker Alcohol intake: never Substance use: never Substance use type: does not use Living arrangements: with family Gender identity (if verbalized by the patient): Female Spiritual care concerns: No Comments At time of signature, I have reviewed and agree with nursing past medical, surgical, social and family history unless otherwise noted. Please see nursing chart for further information. There is no relevant family history pertinent to the presenting complaint Exam Narrative: GENERAL: Well-appearing, well-nourished, and in no acute distress. HEAD: Normocephalic, atraumatic. EYES: EOMI. No redness or drainage. Conjunctivae normal. ENT: Mucous membranes pink and moist. Nares clear. No rhinorrhea. TMs normal bilaterally. Throat normal. Uvula midline. NECK: Normal AROM. Supple. No lymphadenopathy. CHEST: No respiratory distress. Clear to auscultation. HEART: Regular rate and rhythm. No murmur appreciated. EXTREMITIES: Normal range of motion. No edema. SKIN: Warm, dry, no rash. Capillary refill normal. Normal skin turgor. NEURO: No focal deficits. Alert and oriented x3. Gait steady. PSYCH: Normal affect. No signs of depression or anxiety. Course Course Level of Care: Express Care Visit Vital Signs Vital signs: Vital Signs Temperature 98.7 F 10/14/23 08:27 Pulse Rate 103 H 10/14/23 08:27 Respiratory Rate 18 10/14/23 08:27 Blood Pressure 129/76 10/14/23 0
== END 2023-10-14 08:56 | disposition home or self-care (01) ==
PROVIDERS: Emergency Provider Nurse Practitioner; PCP Nurse Practitioner
DX: J22 Unspecified acute lower respiratory infection (principal); J45.901 Unspecified asthma with (acute) exacerbation
CPT/HCPCS: 99213; G0463

== ENCOUNTER 2023-11-10 14:50 | Emergency (ER) | payer BC, SELFPAY ==
--- NOTE | ~2023-11-10 | XR_ITS ---
XR chest 2V DATE: 11/10/2023 15:13 INDICATION: Productive cough for one month TECHNIQUE: 2 views COMPARISON: None FINDINGS: Normal heart size. No hilar or mediastinal enlargement. No pulmonary infiltrate or consolid ation, pleural effusion or pulmonary vascular congestion or pneumothorax. Included skeletal structures are unremarkable. IMPRESSION: Negative Reviewed, dictated and finalized at location L. ARD/STEWARDESS NIGHT IMPRESSION: Negative
--- NOTE | 2023-11-10 14:54 | ED.URI ---
HPI - URI/Sore Throat General Chief Complaint: Upper Respiratory Infection Stated Complaint: cough, left shoulder pain Time Seen by Provider: 11/10/23 14:53 Source: patient Mode of arrival: ambulatory Limitations: no limitations History of Present Illness HPI Narrative: Shanti is a 38-year-old female patient presenting to the clinic today with complaints of cough and some left shoulder pain. She has had the cough for approximately 1 month. Was treated here on October 14 and was diagnosed with the lower respiratory infection and was given prescription for Tessalon Perles and prednisone. She reports that the prednisone did help with her chest tightness however her symptoms are lingering. Has a productive cough with clear phlegm. States that over the last few days she has developed some left scapula pain. Denies any fever, chills, body aches, chest pain, or shortness of breath at this time MD elicited complaint: sore throat and nasal congestion Related Data Home Medications Medication Instructions Recorded Confirmed albuterol sulfate 90 mcg/actuation 90 mcg inhalation PRN 01/10/21 11/10/23 aerosol inhaler sertraline 25 mg tablet 25 mg PO DAILY 11/10/23 11/10/23 Allergies Allergy/AdvReac Type Severity Reaction Status Date / Time cashew nut Allergy Unknown Itching Verified 11/10/23 15:00 egg Allergy Unknown Itching Verified 11/10/23 15:00 pistachio nut Allergy Unknown Itching Verified 11/10/23 15:00 Crab Allergy Unknown Itching Uncoded 11/10/23 15:00 [place] Allergy Unknown Itching Uncoded 11/10/23 15:00 Tuna Allergy Unknown Itching Uncoded 11/10/23 15:00 Review of Systems Review of Systems: Pertinent positives per HPI. Patient denies any fever, chills, rash, headache, visual changes, dizziness, shortness of breath, chest pain, palpitations, nausea, vomiting, diarrhea, constipation, abdominal pain, or any urinary issues. PMFSH Past Medical History Medical History Asthma GERD (gastroesophageal reflux disease) Obesity Surgical History Surgical History History of Social History Social History (Reviewed 11/10/23 @ 15:49 by MILIND Raman Smoking status: Never smoker Alcohol intake: never Substance use: never Substance use type: does not use Living arrangements: with family Gender identity (if verbalized by the patient): Female Spiritual care concerns: No Comments At the time of my signature, I reviewed and agree with the nursing past medical, surgical, social, and family history. There is no relevant family history pertinent to the patient complaint. Exam Narrative: General: Well-developed, well nourished, in no apparent distress Head: Normocephalic, atraumatic Eyes: Pupils equally round and reactive to light bilaterally, EOM intact, sclera and conjunctive clear, no discharge, lids normal Ears: TMs intact and congested, ear canals clear, no drainage, grossly hearing normal. Nose: Nares patent, clear nasal discharge, no inflammation, no sinus tenderness. Mouth: Oral pharynx without lesions or masses, good dentition, MMM. Neck: Supple, trachea midline, no enlargement of anterior or posterior cervical nodes, no thyroid masses or goiter palpable. Cardio: Regular rate and rhythm, s1 and s2 normal, no murmur appreciated. Resp: Faint wheeze to the right middle lobe posterior, no rhonchi, rales, or rubs Course Course Emergency Course: Portions of this record may have been created with voice recognition software. Level of Care: Express Care Visit Vital Signs Vital signs: Vital signs reviewed MDM - URI/Sore Throat MDM Narrative Medical decision making narrative: At the time of visit patient is resting comfortably on the exam table. Patient appears to be nontoxic. Chest x-ray was performed and shows no sign of a pneumonia. I suspect pat
[2023-11-10 15:00] VITALS: BP 131/79; PULSE 81; RESP 16; TEMP 36.7; O2SAT 98
[2023-11-10 15:06] VITALS: BP 131/79; PULSE 81; RESP 16; TEMP 36.7; O2SAT 98
== END 2023-11-10 15:47 | disposition home or self-care (01) ==
PROVIDERS: Emergency Provider Nurse Practitioner Family; PCP Internal Medicine
DX: G93.31 Postviral fatigue syndrome (principal); R05.9 Cough, unspecified; J45.20 Mild intermittent asthma, uncomplicated; J45.909 Unspecified asthma, uncomplicated; K21.9 Gastro-esophageal reflux disease without esophagitis; E66.9 Obesity, unspecified; Z68.29 Body mass index [BMI] 29.0-29.9, adult
CPT/HCPCS: 71046; 99213; G0463

== ENCOUNTER 2024-04-19 12:35 | Outpatient (CLI) | payer BC, SELFPAY ==
--- NOTE | ~2024-04-19 | CT_ITS ---
CT of the Abdomen and Pelvis: Indication: Abdominal pain Technique: 2.5 mm axial scans were obtained through the abdomen and pelvis following intravenous adm inistration of 100 cc of Omnipaque 350. Dose reduction technique was used on this scan by utilizing a utomated exposure control and iterative reconstruction technique. The dose-length product (DLP) was 5 52.48 mGy-cm. COMPARISON: 03/15/2022 Findings: Scans through the lung bases are unremarkable. The liver, spleen, pancreas, gallbladder, adrenals and kidneys are within normal limits. No evidence of aortic aneurysm. No lymphadenopathy. No bowel obstruction or bowel wall thickening. There is no evidence to suggest acute appendicitis. Images through the pelvis were performed. Urinary bladder unremarkable. No pelvic mass seen. No ascit es. Impression: No significant abnormalities seen. Reviewed, dictated and finalized at [facility]. Impression: No significant abnormalities seen.
== END 2024-04-19 12:36 | disposition home or self-care (01) ==
LOC: ANHIMG 12:36
PROVIDERS: PCP Internal Medicine; Visit Provider Nurse Practitioner
DX: R10.32 Left lower quadrant pain (principal); K58.1 Irritable bowel syndrome with constipation; Z87.19 Personal history of other diseases of the digestive system
CPT/HCPCS: 74177; Q9967

== ENCOUNTER 2025-03-26 02:03 | Day surgery (SDC) | payer BC, SELFPAY ==
--- OUTSIDE RECORDS SUMMARY | 2025-03-26 02:05 | XMS_ITS | Clinical Summary ---
Author Organization [facility] Address [address] [place] [address] Care Team Providers Care Building Appraiser Name Role Phone Steven Grider MD Primary Care Provider [phone] Source Comments [facility],non-owned Affiliates and Associated Physician Practices is amultiple site organization consisting of ambulatory clinics and hospital sitesin [place], [place], [place] and [place]. This disclosure is being madepursuant to the Care Everywhere program and may not contain all information available regarding this patient. Last updated 18.[facility] [employer] Social History Tobacco Use Types Packs/Day Years Used Date Smoking Tobacco: Never Assessed Comments Unknown Sex and Gender Information Value Date Recorded Sex Assigned at Not on file Legal Sex Female 11:50 AM CDT Gender Identity Not on file Sexual Orientation Not on file Plan of Treatment Health Maintenance Due Date Last Done Comments HIV SCREENING 2001 HEPATITIS C SCREENING 06/03/2004 DTAP/TDAP/TD VACCINES (1 - Tdap) 2005 HEPATITIS B VACCINE (1 of 3 - 19+ 3-dose series) 2005 COVID-19 VACCINE ( - 2023-2 5 season) 2024 DEPRESSION SCREENING 10/24/2024 INFLUENZA VACCINE (Season Ended) 2025 ZOSTER VACCINE (1 of 2) 2036 HIB VACCINE Aged Out No longer eligi ble based on patient's age to complete this topic HPV VACCINE Aged Out No longer eligi ble based on patient's age to complete this topic MENINGOCOCCAL (Group B) VACC INE SHARED DECISION-MAKING Aged Out No longer eligibl e based on patient's age to complete this topic MENINGOCOCCAL GROUPS A/C/Y/W VACCINE Aged Out No longer eligible b ased on patient's age to complete this topic PNEUMOCOCCAL VACCINE Aged Out No long er eligible based on patient's age to complete this topic Care Teams Building Appraiser Relationship Specialty Start Date End Date Steven Grider MD PCP - General Internal Medicine 06/15/18
--- OUTSIDE RECORDS SUMMARY | 2025-03-26 02:05 | XMS_ITS | Clinical Summary ---
Author Organization [facility] Address [address], [facility] [address] [place] [address] Phone Care Team Providers Care Composition Molder Name Role Phone Steven Grider MD Primary Care Provider Mauricio Vargas MD Unavailable [phone] Allergies Active Allergy Reactions Criticality Noted Date Comments Egg-Derived Products Itching 09/30/2015 Medications VENTOLIN HFA 108 (90 BASE) MCG/ACT Aerosol Solution take 2 Puffs by inhalation as needed. 2 5 Active QVAR 40 MCG/ACT Aerosol Solution Take 2 Puffs by mouth 2 times daily. 1 5 Active MICROGESTIN FE 1.5/30 1.5-30 MG-MCG Tablet Take 1 Tab by mouth daily. 2 5 Active Active Problems No known active problems Family History Medical History Relation Name Comments Diabetes Maternal Grandmother Hypertension Maternal Grandmother Kidney Cancer Maternal Grandmother Melanoma Mother Diabetes Paternal Grandmother Relation Name Status Comments Father Alive Maternal Grandmother Mother Alive Paternal Grandmother Social History Tobacco Use Types Packs/Day Years Used Date Smoking Tobacco: Never Smokeless Tobacco: Never Alcohol Use Standard Drinks/Week Comments No 0 (1 standard drink = 0.6 oz pur e alcohol) Comments No Sex and Gender Information Value Date Recorded Sex Assigned at Not on file Legal Sex Female 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[employer] Gender Identity Not on file Sexual Orientation Not on file Last Filed Vital Signs Vital Sign Reading Time Taken Comments Blood Pressure 120/84 09/30/2015 10:03 AM [employer]WORK SUPERVISOR Pulse 72 09/30/2015 10:03 AM CASEWORK SUPERVISOR Temperature 36.9 C (98.4 F) 09/30/2015 10:03 AM CASEWORK SUPERVISOR Respiratory Rate - - Oxygen Saturation - - Inhaled Oxygen Concentration - - Weight 91.9 kg (202 lb 9.6 oz) 09/30/2015 10:03 AM CASEWORK SUPERVISOR Height 167.6 cm (5' 6) 09/30/2015 10:03 AM CASEWORK SUPERVISOR Body Mass Index 32.7 09/30/2015 10:03 AM CASEWORK SUPERVISOR Plan of Treatment Health Maintenance Due Date Last Done Comments Hepatitis C Virus (HCV) Screening 1985 TdaP Immunization 1985 Hepatitis B Immunization (1 of 3 - 19+ 3-dose series) 2005 Pap Smear 2007 Cervical Cancer Screening (CCS) 2016 HPV/Cotest 2016 Influenza Immunization (#1) 2024 SARS-COV-2 Immunization (2023- season) 2024 Respiratory Syncytial Virus (RSV) Immunization (Adult) (1 - 1-dose 75+ series) 2061 Meningococcal Immunization (ACWY) Aged Out No longer eligible based on patient's age to complete this topic Pneumococcal Immunization Combined Aged Out No longer eligible based on patient's age to complete this topic Rotavirus Immunization Aged Out No lo nger eligible based on patient's age to complete this topic Insurance MEDICAID [employer] Care Teams Composition Molder Relationship Specialty Start Date End Date Steven Grider MD [address] [place] [address] PCP - General Family Medicine 09/25/15 Mauricio Vargas MD [address] [address] General Surgery 10/02/15
[2025-03-26 11:37] VITALS: BP 132/87; PULSE 95; RESP 18; TEMP 36.3; O2SAT 98; BMI 30.1
--- NOTE | 2025-03-26 11:42 | P.PNAN_ITS ---
Anes - Initial Pre Proc Eval Procedure: Operation Date: 03/26/25 13:00 Proposed Procedures p Esophagogastroduodenoscopy - Chai Frost MD Date/Time: 03/26/25 11:42 Surgeon: Chai Frost MD Pre Op Diagnosis: Eosinophilic esophagitis, Dysphagia, unspecified Patient Data Age: 39 Gender: F Height: 1.7 m Weight: 87.2 kg Last Vital Signs Temp 36.3 C L 03/26/25 11:37 Pulse 95 03/26/25 11:37 Resp 18 03/26/25 11:37 BP 132/87 03/26/25 11:37 Pulse Ox 98 03/26/25 11:37 O2 Del Method Room Air 03/26/25 11:37 Allergies Allergy/AdvReac Type Severity Reaction Status Date / Time cashew nut Allergy Unknown Itching Verified 03/26/25 11:36 egg Allergy Unknown Itching Verified 03/26/25 11:36 pistachio nut Allergy Unknown Itching Verified 03/26/25 11:36 Crab Allergy Unknown Itching Uncoded 03/26/25 11:36 [place] Allergy Unknown Itching Uncoded 03/26/25 11:36 Tuna Allergy Unknown Itching Uncoded 03/26/25 11:36 Home Medications ?Medication ?Instructions ?Recorded ?Confirmed ?Type albuterol sulfate 90 mcg/actuation 90 mcg inhalation PRN 01/10/21 03/19/25 History aerosol inhaler epinephrine 0.3 mg/0.3 mL 0.3 mg (0.3 mL) IM ONCE #1 ea 01/10/21 03/19/25 Rx injection, auto-injector (EpiPen 2-Vitaliy) linaclotide 290 mcg capsule 290 mcg Capsule#1 Samples 04/02/24 03/19/25 Sample (Linzess) linaclotide 290 mcg capsule 290 mcg Capsule#2 Samples 04/02/24 03/19/25 Sample (Linzess) omeprazole 40 mg capsule,delayed 40 mg PO DAILY #30 caps 07/03/24 03/26/25 Rx release plecanatide 3 mg tablet (Trulance) 3 mg Tablet#2 Samples 07/03/24 03/19/25 Sample dupilumab 300 mg/2 mL subcutaneous 300 mg (2 mL) subcut WEEKLY #8 mL 01/03/25 03/19/25 Rx pen injector (Dupixent) sertraline 50 mg tablet 50 mg PO DAILY 03/19/25 03/26/25 History Patient hx anesthesia problems: none Family hx anesthesia problems: none Results Review: All pre-operative results and documents have been reviewed as part of the pre- operative evaluation. [facility] Past Medical History Medical History (Updated 03/26/25 @ 07:45 by Omari Lujan DO) Anxiety RUTHIE (obstructive sleep apnea) GERD (gastroesophageal reflux disease) Obesity Asthma Surgical History Surgical History History of Family History Family History (Updated 01/03/25 @ 09:29 by Thalia Nina, IBIS) Grandparent Carcinoma of colon Social History Social History Smoking status: Never smoker Alcohol intake: never Substance use: never Substance use type: does not use Living arrangements: with family Gender identity (if verbalized by the patient): Female Spiritual care concerns: No Anes - Eval Final PreProcedure Day of Procedure 03/26/25 11:42 Patient weight: obese Heart: regular rate and rhythm Lungs: clear to auscultation Airway: Mallampati scale class II Neurological: alert and oriented Last oral intake: >/= 8 hours ASA classification: III Emergent: no Anesthetic plan: proceed Anesthesia type and monitoring: general GIVS and standard monitoring Results Review: All pre-operative results and documents have been reviewed as part of the pre- operative evaluation. Informed Consent: The patient's anesthetic plan and its attendant risks and benefits were discussed with the patient/family/POA. Questions were solicited and answers provided to the satisfaction of the patient/family/POA.
[2025-03-26] MEDS: LACTATED RINGERS 1,000 ML 150 ML IV CONT (11:48)
[2025-03-26 11:54] LABS: BEDSIDEPREGUCG Negative (Negative)
--- NOTE | 2025-03-26 13:01 | P.HP_ITS ---
H&P: HPI History of Present Illness Date/Time: 03/26/25 13:01 Chief Complaint: Eosinophilic esophagitis Narrative: patient diagnosed with eosinophilic esophagitis in 2021, has been doing well on omeprazole. However, with the past few weeks he has been experiencing dysphagia to solid foods again. He is referred for EGD and biopsy. Review of Systems Review of Systems: All systems reviewed & are unremarkable except as noted in HPI and below PMFSH Past Medical History Medical History (Updated 03/26/25 @ 13:02 by Chai Frost MD) Anxiety RUTHIE (obstructive sleep apnea) GERD (gastroesophageal reflux disease) Obesity Asthma Surgical History Surgical History History of Family History Family History (Updated 01/03/25 @ 09:29 by Thalia Nina APRN) Grandparent Carcinoma of colon Social History Social History Smoking status: Never smoker Alcohol intake: never Substance use: never Substance use type: does not use Living arrangements: with family Gender identity (if verbalized by the patient): Female Spiritual care concerns: No Meds Home Medications and Allergies Home Medications ?Medication ?Instructions ?Recorded ?Confirmed ?Type albuterol sulfate 90 mcg/actuation 90 mcg inhalation PRN 01/10/21 03/19/25 History aerosol inhaler epinephrine 0.3 mg/0.3 mL 0.3 mg (0.3 mL) IM ONCE #1 ea 01/10/21 03/19/25 Rx injection, auto-injector (EpiPen 2-Vitaliy) linaclotide 290 mcg capsule 290 mcg Capsule#1 Samples 04/02/24 03/19/25 Sample (Linzess) linaclotide 290 mcg capsule 290 mcg Capsule#2 Samples 04/02/24 03/19/25 Sample (Linzess) omeprazole 40 mg capsule,delayed 40 mg PO DAILY #30 caps 07/03/24 03/26/25 Rx release plecanatide 3 mg tablet (Trulance) 3 mg Tablet#2 Samples 07/03/24 03/19/25 Sample dupilumab 300 mg/2 mL subcutaneous 300 mg (2 mL) subcut WEEKLY #8 mL 03/13/25 05/27/25 Rx pen injector (DupixInternetArray) sertraline 50 mg tablet 50 mg PO DAILY 03/19/25 03/26/25 History Allergies Allergy/AdvReac Type Severity Reaction Status Date / Time cashew nut Allergy Unknown Itching Verified 03/26/25 11:36 egg Allergy Unknown Itching Verified 03/26/25 11:36 pistachio nut Allergy Unknown Itching Verified 03/26/25 11:36 Crab Allergy Unknown Itching Uncoded 03/26/25 11:36 [place] Allergy Unknown Itching Uncoded 03/26/25 11:36 Tuna Allergy Unknown Itching Uncoded 03/26/25 11:36 Vital Signs Vital Signs - 24 hr 03/26/25 11:37 Temperature 97.4 F L Pulse Rate 95 Respiratory Rate 18 Blood Pressure 132/87 Pulse Oximetry 98 Oxygen Delivery Room Air Exam Const: General: cooperative and healthy appearing Resp: Effort & Inspection: normal respiratory effort and able to speak in complete sentences Auscultation: clear to auscultation bilaterally Cardio: Rate: regular rate Rhythm: regular rhythm GI: Inspection: normal to inspection GI Palp: No No hepatosplenomegaly present Auscultation: normal bowel sounds Rectal Exam: deferred Skin: General skin exam: normal color Psych: Appearance: grossly normal Mental Status: mental status grossly normal Assessment and Plan Assessment and plan (1) Eosinophilic esophagitis: Code(s): K20.0 - Eosinophilic esophagitis Status: Acute Assessment and Plan: The patient is deemed a good candidate for the procedure. Consent signed. Will proceed.
--- NOTE | 2025-03-26 13:20 | S_PTH ---
PATIENT: Shanti Padilla LOC: [facility] U#:[id number] AGE/SX: 39/F ROOM: RE03/26/[address]: Chai Frost MD : 1985 BED: DIS: 03/26/2025 SPEC #: [id number] RECD: 03/26/25 13:41 STATUS: YURIY REEligio #: [id number] ALONA: 03/26/25 13:[address]: Chai Frost DEPT: [facility] Surgical RECD BY: Viola Burgess ENTERED: 03/26/25 13:41 SP TYPE: Surgical OTHR DR: Steven GriderMD Tissues: A - Esophageal Biopsy Procedures: Hematoxylin and Eosin Stain Gross and Microscopic Level 4
[2025-03-26 13:26] VITALS: BP 126/65; PULSE 69; RESP 24; O2SAT 100
[2025-03-26 13:36] VITALS: BP 114/73; PULSE 74; RESP 22; O2SAT 100
[2025-03-26 13:46] VITALS: BP 131/82; PULSE 66; RESP 17; O2SAT 100
== END 2025-03-26 13:58 | disposition home or self-care (01) ==
PROVIDERS: Anesthesiology; PCP Internal Medicine; Referring Provider Nurse Practitioner; Visit Provider Internal Medicine Gastroenterology
PROC: 0DJ08ZZ Inspection of Upper Intestinal Tract, Via Natural or Artificial Opening Endoscopic (ICD-10-PCS; CPT 43239; principal; 2025-03-26 13:00)
DX: K20.0 Eosinophilic esophagitis (principal); K29.80 Duodenitis without bleeding; K29.30 Chronic superficial gastritis without bleeding; F41.9 Anxiety disorder, unspecified; G47.33 Obstructive sleep apnea (adult) (pediatric); K21.9 Gastro-esophageal reflux disease without esophagitis; J45.909 Unspecified asthma, uncomplicated; E66.9 Obesity, unspecified; Z68.30 Body mass index [BMI] 30.0-30.9, adult; Z79.51 Long term (current) use of inhaled steroids; Z79.85 Long-term (current) use of injectable non-insulin antidiabetic drugs; Z98.890 Other specified postprocedural states; Z80.0 Family history of malignant neoplasm of digestive organs
CPT/HCPCS: 43239; 88305; J2003; J2704; J7120